=== PATIENT | male | born 1960 | race Caucasian/White ===

== ENCOUNTER 2024-05-07 10:22 | Outpatient (AMB) | payer BC, SELFPAY ==
--- NOTE | 2024-05-07 10:30 | HO.SPINEOV ---
Vital Signs 05/07/24 10:35 Height 6 ft 3 in Weight 245 lb BMI 30.6 Intake Visit Reasons: cervical stenosis/ Neck pain Intake Note: Mr. Sawant is here today c/o neck pain that radiates down to both arms causing burning sensation. 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 Ken Gordillo, , I self-referred patient from [place] with a chief complaint of right hand weakness. HPI: This 63-year-old male visited me today from [place] to discuss surgical options for his cervical myelopathy. The patient lost strength in his right hand in January of 2024. Fortunately, the strength has improved over time to proximally 50%. On further questioning, he mentioned that he has dexterity loss of the left hand for a longer period of time, significant muscle loss of his left triceps tingling in the hands. He denies pain. He denies balance problems, erectile dysfunction or urge incontinence. He denies weakness of the lower extremities. He had several surgical opinions from other surgeons that varied from a C2-T1 posterior decompression and fusion or an anterior decompression and fusion. He comes in for a another surgical opinion. PMH: He had orthopedic procedures done of the right ankle and right knee but is otherwise in good condition. Medications: None Allergies: NKDA Social history: Works in real estate. Denies smoking. Physical Exam: Height 6'3 weight 245 lb. On inspection there is significant atrophy of the left triceps and possibly of the biceps musculature as well. 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 Sensory exam is grossly intact. There is hyperreflexia of the lower extremities with the right side is higher than the left side and he has a Lilliana reflex on the left side. No ankle clonus. Gait is undisturbed. Radiological Studies: A CT scan of the cervical spine of 04/29/2024 shows auto fusion of C2-3 and C3-C4 and a straight spine. MRI done at 03/26/2024 shows diffuse myelomalacia predominantly behind the body of C5, C6 and at the C6-7 disc space. There spinal cord compression at C4-5 and C6-7 and foraminal stenosis at C5-C6. Impression/Plan: This patient is suffering from progressive cervical myelopathy with weakness, muscle wasting and dexterity loss caused by multilevel spinal cord compression in his cervical spine that is partially auto fused and significantly arthritic changes. We had an extensive discussion about surgical approaches and blood put be the best option in his patient. One surgeon offered a C2-T1 cervical posterior decompression and fusion. I see no indication for a posterior fusion and definitely not from C2-T1 as the patient already auto fused from C2-C4. An anterior approach would entail a 3 level anterior diskectomy and fusion which in addition to the already fused C2-3 and C3-4 segments would result in a 5 level fusion with a significant reduction in mobility of the neck and an high-risk of adjacent degenerative disc disease below the construct. The cervical compression is from C4 to the C6-7 level and in my opinion a simple C4, C5, C6 and half C7 laminectomy would be more than sufficient to help this patient and stabilize his symptoms. In my opinion, there is no reason to instrument posteriorly. The risk for development of kyphosis following a laminectomy in this patient is very low due to the fact that his cervical spine is so arthritic with large anterior osteophyte, which would prevent kyphosis. I also explained to the patient that even in the event of a cervical kyphosis this would most likely be asymptomatic. He agree with my plan and he is scheduled for a cervical laminectomy C4 to have C7 on 06/10/2024. He will obtain preoperative clearance from his primary care physician in [place], where he resides. Obviously, he will not be available for pre testing in person. Thank you for allowing me to participate in your patients care. 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
[2024-05-07 10:35] VITALS: BMI 30.6
== END 2024-05-07 11:21 | disposition home or self-care (01) ==
PROVIDERS: Visit Provider Neurological Surgery
DX: M47.12 Other spondylosis with myelopathy, cervical region (principal)
CPT/HCPCS: 99205